=== PATIENT | female | born 1940 | race Caucasian/White ===

== ENCOUNTER 2017-02-05 19:43 | Emergency (ER) | payer MEDICARE ==
[~2017-02-05] VITALS: Ht 154.9 cm; Wt 81.8 kg
[2017-02-05 19:56] VITALS: BP 158/69; PULSE 61; RESP 20; O2SAT 93
--- NOTE | 2017-02-05 22:08 | ED.REPORT ---
HPI-General Illness Date of Service Feb 05, 2017 ED Provider: Dr. Johnson Pt is a generally healthy 76 y/o female w/ a hx of HTN, presenting to the ED due to elevated blood pressure at home. The patient had a tonsillectomy at 09: 00 today. She took her BP at home which read 206 systolic. She then took an extra dose of hydrochlorothiazide 25 mg at 18:00. At time of arrival her BP is 158/69. Her only complaint is sore throat. She has not filled her postoperative pain prescription yet. Nursing Notes Stated Complaint: REMOVED TONSILS TODAY,HIGH BP Chief Complaint: General Complaint Nursing Notes Reviewed: Yes Allergies: Coded Allergies: No Known Allergies (Unverified , 06/13/16) General Time Seen by MD: 22:08 Chief Complaint Other (hypertension) Hx Obtained From: Patient Arrived By: Walk-in Sudden in Onset?: No Onset Occurred: Onset unknown Symptom Duration: Since onset Recent Healthcare: Previous diagnosis Similar Sx Previous: Yes Past Medical History Past Medical History Arthritis Hypertension Hypothyroidism Past Surgical History eye surgery Tonsillectomy Smoking History Never Smoker Ambulatory Status Independent Review of Systems Full Review of Systems Constitutional: Denies: Chills, Fever Ears / Nose / Throat: Reports: Sore throat, Denies: Throat swelling, Tongue swelling Cardiovascular: Denies: Chest pain GI: Denies: Abdominal pain, Nausea, Vomiting Female: Denies: Flank pain Musculoskeletal: Denies: Back pain, Neck pain Neurologic: Denies: Change LOC, Confusion, Dizziness, Focal weakness, Headache , Numbness, Slurred speech, Unable to speak, Vision change Complete sys rev & neg: except as marked. Physical Exam Vital Signs Vital Signs Date Time Temp Pulse Resp B/P Pulse Ox O2 Delivery O2 Flow Rate FiO2 02/06/17 00:58 58 18 160/57 93 Room Air 02/06/17 00:00 56 16 146/39 92 Room Air 02/05/17 23:00 60 18 169/45 92 Room Air 02/05/17 19:56 36.6 61 20 158/69 93 Room Air Initial VS: Reviewed, Vital signs abnormal Head / Eyes: Atraumatic, Normocephalic, PERRL Neck: Supple, Full range of motion Respiratory: Breath sounds normal, Clear to auscultation, No respiratory distress Cardiovascular: Regular rate & rhythm, Heart sounds normal, Intact distal pulses Abdomen / GI: Soft, Non-tender Extremities: Vascular intact, Neuro intact, No swelling Skin: Warm, Dry, No cyanosis Neurologic: Alert, Oriented, Nonfocal Psychiatric: Mood/affect normal, Behavior normal, Normal thought content General/Constitutional: Awake, Alert, No acute distress, Well appearing, Cooperative, Not toxic appearing BP at time of interview: 189/47 ENT: Airway patent, Mucous membranes moist, No pooling of secretions, No trismus, No facial swelling Normal postoperative appearance of pharynx/tonsil area No signs of infection Interpretation & Diagnostics Lab Results Interpretation Result Diagram: 02/05/17 2305 02/05/17 2305 Test 02/05/17 23:05 02/05/17 23:18 White Blood Count 13.2th/mm3 (3.8-10.1) Red Blood Count 4.83mil/mm3 (3.90-5.20) Hemoglobin 14.5g/dL (12.0-15.6) Hematocrit 42.6% (35.0-46.0) Mean Corpuscular Volume 88.2fL (81-100) Mean Corpuscular Hemoglobin 30.0pg (27.0-35.0) Mean Corpuscular Hemoglobin Concent 34.0% (32.0-37.0) Red Cell Distribution Width 13.8% (12.3-15.4) Platelet Count 270bil/L (150-400) Neutrophils (%) (Auto) 88.3% (40-74) Lymphocytes (%) (Auto) 9.6% (14-46) Monocytes (%) (Auto) 1.5% (4-12) Eosinophils (%) (Auto) 0% (0-5) Basophils (%) (Auto) 0.2% (0-3) Sodium Level 137mEq/L (134-144) Potassium Level 3.6mEq/L (3.5-5.2) Chloride Level 98mEq/L (97-108) Carbon Dioxide Level 23mmol/L (18-29) Blood Urea Nitrogen 12mg/dL (8-27) Creatinine 0.46mg/dL (0.57-1.00) Estimat Glomerular Filtration Rate 189mL/min (>59) Glucose Level 179mg/dL (60-99) Calcium Level 9.7mg/dL (8.5-10.1) Total Bilirubin 0.4mg/dL (0.0-1.2) Aspartate Amino Transf (AST/SGOT) 20U/L (0-50) Alanine Aminotransferase (ALT/SGPT) 17U/L (0-32) Alkaline Phosphatase 84U/L (25-165) Troponin T 0.010ug/L (0.0-0.011) Total Protein 7.7g/dL (6.4-8.4) Albumin 4.4g/dL (3.4-5.0) Hold Cruz Top Tube Received (Received) ECG Interpretation ECG Interpretation: Sinus rhythm rate 57 Probable LAE Diffuse T wave flattening Time: 23:30 Interpreted by: ED physician Normal ECG Interpretation: No acute ischemic changes, No change from prior ECGs Rhythm Strip Interpretation : Time: 23:30 Rhythm Strip Interpretation: Interpreted by me, Rate (57), Normal sinus rhythm CBC Interpretation CBC normal except, WBC elevated BMP / CMP Interpretation BMP/CMP normal Cardiac / Vascular Lab Interp Troponin normal Re-Eval/Medical Decision Med Decision/Clinical Course Treating her throat pain lead to resolution of the elevated blood pressure. At discharge she is pain-free and her blood pressure was as low as 148. She does take antihypertensives and she is going to initiate those again in the morning. Laboratory work reassuring. EKG without signs of an acute RI. Outpatient follow-up recommended. Routine opiate warnings given. Source of Hx: Old records Time of Eval: 00:22 Re-Evaluation/Progress Note: Pt rechecked. Informed pt of plan for discharge. Pt understands and agrees with plan for discharge. F/U instructions and RTER warnings given. All questions addressed. Counseled Regarding: Diagnosis, Need for follow-up, When/why to return to ED Discharge & Departure Primary Impression: Hypertension Hypertension type: essential hypertension Qualified Code: I10 - Essential ( primary) hypertension Additional Impression: Postoperative pain Disposition: Home Discharge Condition All VS Reviewed: Yes Condition: Stable Patient Instructions: Chronic Hypertension (ED) Additional Instructions: I suspect your high blood pressure was caused by your sore throat. Pain is known to cause increases in blood pressure. Your BP improved after pain medication. Take Lortab elixir 10 mL every 6 hours as needed for pain. Do not combine this with alcohol or acetaminophen. Do not drive while taking this medication. Take your regular blood pressure medications as prescribed. If this is persistently elevated you may need to be put on a different blood pressure medication. Return to the emergency department if you experience severe headache, numbness/ weakness/tingling off your arms or legs, chest pain, shortness of breath, or for other concerning symptoms. Follow-up with your doctor in 1 week for a recheck. Call to schedule an appointment. Referrals: Mahamed Ames MD (PCP) Dwain Almonte MD Scribe Attestation Portions of this note were transcribed by Omer Bishop. I, Dr. Johnson personally performed the history, physical exam and medical decision-making; I reviewed and confirmed the accuracy of the information in the transcribed note. copies to: Dwain Almonte MD; Mahamed Ames MD, Todd P DO Feb 05, 2017 22:08 OMER BISHOP Feb 05, 2017 22:13
[2017-02-05] MEDS ORDERED: HYDROcodone-APAP 7.5-325 mg/15 mL 15 mL Solution PO ONE (22:30)
[2017-02-05 23:00] VITALS: BP 169/45; PULSE 60; RESP 18; O2SAT 92
[2017-02-05 23:08] LABS: BASOPHILS % (AUTO) 0.2 % (0-3); EOSINOPHILS % (AUTO) 0 % (0-5); MONOCYTES % (AUTO) 1.5 % (4-12); Mean Corpuscular Volume 88.2 fL (81-100); NEUTROPHILS % (AUTO) 88.3 % (40-74); Platelet Count 270 bil/L (150-400)
[2017-02-05 23:52] LABS: TROPONIN T 0.01 ug/L (0.0-0.011)
[2017-02-06] VITALS: BP 146/39; PULSE 56; RESP 16; O2SAT 92
[2017-02-06 00:58] VITALS: BP 160/57; PULSE 58; RESP 18; O2SAT 93
== END 2017-02-06 00:50 | disposition home or self-care (01) ==
LOC: SED 19:43
DX: I10 Essential (primary) hypertension (principal); G89.18 Other acute postprocedural pain; J02.9 Acute pharyngitis, unspecified; E03.9 Hypothyroidism, unspecified; Z98.890 Other specified postprocedural states